=== PATIENT | female | born 1940 | race Caucasian/White ===

== ENCOUNTER 2017-12-26 12:00 | Inpatient (IN) | payer MEDICARE, OTHER ==
[2017-12-27] MEDS ORDERED: Gentamicin 40 MG/ML 2 ML Vial ONE (07:06)
[2017-12-27] MEDS ORDERED: fentaNYL 100 MCG/2 ML SDV ONE (07:54)
[2017-12-27] MEDS ORDERED: Midazolam 1 MG/ML 2 ML SDV ONE (07:54)
[2017-12-27] MEDS ORDERED: Propofol 200 MG/20 ML SDV ONE (07:54)
[2017-12-27] MEDS ORDERED: Lactated Ringers 1,000 ML IV SCH (08:00)
[2017-12-27] MEDS ORDERED: Acetaminophen 500 MG Tab PO ONE (08:00)
[2017-12-27] MEDS ORDERED: Scopolamine 1.5 MG Transdermal Patch TOP SCH (08:00)
[2017-12-27] MEDS ORDERED: ceFAZolin 2 GM in Premix Bag 1 BAG IV ONE (08:00)
[2017-12-27] MEDS ORDERED: Bupivacaine 0.75%/D5W 2 ML Amp ONE (09:13)
[2017-12-27] MEDS ORDERED: Tranexamic Acid 3,000 MG, Sodium Chloride 0.9% 100 ML TOP SCH ×2 (09:15)
[2017-12-27] MEDS ORDERED: Ropivacaine 49.25 ML, Ketorolac 30 MG, EPINEPHrine 0.5 MG, cloNIDine 80 MCG, Sodium Chl... INJECT ONE ×5 (09:15)
[2017-12-27] MEDS ORDERED: Lactated Ringers 1,000 ML ONE (09:51)
[2017-12-27] MEDS: Povidone-Iodine 10% Soln 118.25 ML Bottle ONE ×2 (10:11→10:46)
[2017-12-27] MEDS ORDERED: Morphine 2 MG/ML Syringe IVPUSH PRN (10:29)
[2017-12-27] MEDS ORDERED: Zolpidem 5 MG Tab PO PRN (10:29)
[2017-12-27] MEDS ORDERED: Acetaminophen/oxyCODONE 325-5 MG Tab PO PRN (10:29)
[2017-12-27] MEDS ORDERED: Naloxone 0.4 MG/ML SDV IVPUSH PRN (10:29)
[2017-12-27] MEDS ORDERED: Ketorolac 30 MG/ML SDV IVPUSH PRN (10:29)
[2017-12-27] MEDS ORDERED: Sennosides 8.6 MG Tab PO PRN (10:29)
[2017-12-27] MEDS ORDERED: Ondansetron 4 MG/2 ML SDV IVPUSH PRN (10:29)
[2017-12-27] MEDS ORDERED: Docusate Sodium 100 MG Cap PO PRN (10:29)
[2017-12-27] MEDS ORDERED: diphenhydrAMINE 50 MG/ML SDV IVPUSH PRN (10:29)
[2017-12-27] MEDS ORDERED: Bisacodyl 5 MG Tab PO PRN (10:29)
[2017-12-27] MEDS ORDERED: traMADol 50 MG Tab PO PRN (10:29)
[2017-12-27] MEDS ORDERED: Magnesium Hydroxide 400 MG/5 ML Susp 30 ML Cup PO PRN (10:29)
[2017-12-27] MEDS ORDERED: Aluminum Hydroxide/Magnesium Hydroxide/Simethicone Susp 30 ML Cup PO PRN (10:29)
--- NOTE | 2017-12-27 11:39 | OR ---
DATE OF PROCEDURE: 12/27/2017 PREOPERATIVE DIAGNOSES: Right knee pain and polyethylene wear. POSTOPERATIVE DIAGNOSES: Right knee pain and polyethylene wear. PROCEDURES PERFORMED: 1. Right knee polyethylene exchange. 2. Right knee synovectomy. ANESTHESIA: Spinal plus conscious sedation. FLUIDS: Lactated Ringer solution. ESTIMATED BLOOD LOSS: 25 mL. COMPLICATION: None. SPECIMEN: None. DISCHARGE DISPOSITION: Stable to PACU. INDICATION FOR PROCEDURE: The patient is well known to me. She had a previous total knee arthroplasty performed in [place] around 9 years ago. She has continued to have knee pain and instability. She had anterior translation in flexion, going up and down stairs and hills were very difficult. Preoperative imaging confirmed the above-mentioned diagnosis. Risks and benefits of the procedure were explained to the patient and informed consent was obtained. DESCRIPTION OF PROCEDURE: The patient was seen preoperatively in the preoperative holding area, where the operative site was marked. She was brought to the operative suite by the Anesthesia staff, where spinal sedation plus conscious sedation was administered. Sterile Kelley catheter was placed. A well-padded tourniquet was placed on the right lower extremity, on the thigh. The right lower extremity was then prepped and draped in a sterile manner. Time-out was called identifying the correct patient, the correct procedure, the correct site, and that antibiotics had been begun within the appropriate period of time. A midline incision was made three fingerbreadths proximal to the patella, down to the level of the tibial tubercle, not as long as the previous incision. The medial parapatellar arthrotomy was then made. I did a full synovectomy, at that point, we removed the polyethylene. I then used a lamina hand etcher helper to get redundant posterior capsule as well as piecrust, the posterior capsule due to the stability in extension, but not flexion. I then trialed with a 15, which was a more restrained implant, but we still had anterior translation. So, I tried a 17, 2 mm more than the previous one. This provided excellent stability throughout range of motion and decreased my anterior translation in flexion. We then copiously irrigated with saline and then replaced the trial with the final implant, and then closed the incision at superior and inferior pole of the patella with #5 Ethibond followed by #1 STRATAFIX as well as periarticular injection, and then #2 STRATAFIX, followed by skin lukasz and sterile dressing. The patient was then allowed to awaken from general anesthesia and taken to the PACU in a stable condition. Rangel Garner DO /[id number]
--- NOTE | 2017-12-27 13:10 | CR ---
Knee 1V or 2V Rt CLINICAL HISTORY: Postop FINDINGS: Patient is status post revision of a 3 component total knee arthroplasty. Components appear well seated. Impression: Status post recent revision of total knee arthroplasty
[2017-12-27] MEDS ORDERED: Acetaminophen 325 MG Tab PO PRN (14:53)
[2017-12-27] MEDS: Acetaminophen/oxyCODONE 325-5 MG Tab PO PRN ×2 (15:06→18:31)
[2017-12-27] MEDS: ceFAZolin 2 GM in Sodium Chloride 0.9% 50 ML IV SCH (16:21)
--- NOTE | 2017-12-27 19:39 | PCM.CONSN ---
- General Info Date of Service: 12/27/17 Admission Dx/Problem (Free Text): This is a 77 year old woman, who ihas been asked by Dr. Rey Garner for assistance in postoperative medical management. She underwent a resurfacing of her right total knee arthroplasty earlier today by Dr. Jo-Ann Garner. Since postoperative period she has not had any difficulty. She reports pain control has been good and denies any symptoms of chest pain or shortness of breath. she is otherwise relatively healthy but does have a known history of hypertension, anticoagulation therapy with Coumadin. Will plan to check INR/PT with am labs. Functional Status: Reports: Pain Controlled, Tolerating Diet, Incentive Spirometry - Review of Systems General: Reports: No Symptoms, Other (reports feeling alittle tired. denies chest pain, shortness of breath, pain is controlled.) HEENT: Reports: Glasses, Other (dentures) Pulmonary: Reports: No Symptoms Cardiovascular: Reports: No Symptoms Gastrointestinal: Reports: No Symptoms Genitourinary: Reports: No Symptoms Musculoskeletal: Reports: Leg Pain (surgery today; resurfacing procedure of her right total knee arthroplasty) Skin: Reports: Other (nichol wrap covering surgerical dressing.) Neurological: Reports: No Symptoms Psychiatric: Reports: No Symptoms - Patient Data Vitals - Most Recent: Last Vital Signs Temp 36.2 C 12/27/17 14:30 Pulse 80 12/27/17 14:30 Resp 16 12/27/17 14:30 BP 128/76 12/27/17 14:30 Pulse Ox 99 12/27/17 14:30 Weight - Most Recent: 92.624 kg I&O - Last 24 Hours: Intake & Output 12/27/17 12/27/17 12/27/17 06:59 14:59 22:59 Intake Total 75 1150 Output Total 150 600 Balance -75 550 Lab Results Last 24 Hours: Laboratory Results - last 24 hr 12/27/17 Range/Units 07:30 Blood Type O POSITIVE Gel Antibody Screen Negative Med Orders - Current: Current Medications Acetaminophen (Tylenol) 650 mg PO Q4H PRN PRN Reason: Pain Al Hydroxide/Mg Hydroxide (Mag-Al Plus) 30 ml PO Q4H PRN PRN Reason: Constipation Bisacodyl (Dulcolax) 10 mg PO DAILY PRN PRN Reason: Constipation Diphenhydramine HCl (Benadryl) 25 mg IVPUSH Q4H PRN PRN Reason: Itching Docusate Sodium (Colace) 100 mg PO BID PRN PRN Reason: Constipation Cefazolin Sodium 2 gm/ Sodium (Chloride) 50 mls @ 100 mls/hr IV Q8H [facility] Stop: 12/28/17 09:29 Last Admin: 12/27/17 16:21 Dose: 100 mls/hr Lactated Ringer's (Ringers, Lactated) 1,000 mls @ 100 mls/hr IV ASDIRECTED [facility] Ketorolac Tromethamine (Toradol) 30 mg IVPUSH Q8H PRN PRN Reason: Pain Lovastatin (Mevacor) 20 mg PO QPM [facility] Last Admin: 12/27/17 16:34 Dose: 20 mg Magnesium Hydroxide (Milk Of Magnesia) 30 ml PO BID PRN PRN Reason: Constipation Morphine Sulfate (Morphine) 2 mg IVPUSH Q2H PRN PRN Reason: Pain Naloxone HCl (Narcan) 0.1 mg IVPUSH ONETIME PRN PRN Reason: Oversedation Ondansetron HCl (Zofran) 8 mg IVPUSH Q4H PRN PRN Reason: Nausea/Vomiting Oxybutynin Chloride (Oxybutynin) 5 mg PO DAILY [facility] Oxycodone/Acetaminophen (Percocet 325-5 Mg) 1 - 2 tab PO Q4H PRN PRN Reason: Pain Last Admin: 12/27/17 18:31 Dose: 1 tab Scopolamine (Transderm-Scop) 1.5 mg TOP Q72H [facility] Stop: 12/29/17 08:01 Last Admin: 12/27/17 07:50 Dose: 1.5 mg Senna (Senna) 8.6 mg PO BID PRN PRN Reason: Constipation Sertraline HCl (Zoloft) 50 mg PO DAILY [facility] Sodium Chloride (Saline Flush) 10 ml FLUSH DAILY [facility] Tramadol HCl (Ultram) 100 mg PO Q6H PRN PRN Reason: Pain Warfarin Sodium (Coumadin) 2.5 mg PO SuTuThSa@1300 [facility] Warfarin Sodium (Coumadin) 5 mg PO MoWeFr@1300 [facility] Zolpidem Tartrate (Ambien) 5 mg PO BEDTIME PRN PRN Reason: Sleep Discontinued Medications Acetaminophen (Tylenol Extra Strength) 1,000 mg PO ONETIME ONE Stop: 12/27/17 08:01 Last Admin: 12/27/17 07:49 Dose: 1,000 mg Aspirin (Ecotrin) 325 mg PO DAILY [facility] Bupivacaine HCl/Dextrose (Marcaine 0.75% Spinal) Confirm Administered Dose 2 ml .ROUTE .STK-MED ONE Stop: 12/27/17 09:14 Ropivacaine 49.25 ml/Ketorolac Tromethamine 30 mg/Epinephrine HCl 0.5 mg/ Clonidine HCl 80 mcg/ Sodium Chloride 48.45 ml 0 ml INJECT ONETIME ONE Stop: 12/27/17 09:16 Last Admin: 12/27/17 10:02 Dose: 100 ml Tranexamic Acid 3,000 mg/ (Sodium Chloride 100 ml) 0 mg TOP ASDIRECTED [facility] Stop: 12/27/17 09:16 Last Admin: 12/27/17 10:03 Dose: 100 bag Fentanyl (Sublimaze) Confirm Administered Dose 100 mcg .ROUTE .STK-MED ONE Stop: 12/27/17 07:55 Gentamicin Sulfate (Gentamicin) Confirm Administered Dose 240 mg .ROUTE .STK- MED ONE Stop: 12/27/17 07:07 Last Admin: 12/27/17 10:10 Dose: 240 mg Cefazolin Sodium/Dextrose 2 gm (/ Premix) 50 mls @ 100 mls/hr IV ONETIME ONE Stop: 12/27/17 08:29 Last Admin: 12/27/17 09:01 Dose: 100 mls/hr Lactated Ringer's (Ringers, Lactated) 1,000 mls @ 100 mls/hr IV ASDIRECTED [facility] Last Admin: 12/27/17 08:47 Dose: 100 mls/hr Lactated Ringer's (Ringers, Lactated) Confirm Administered Dose 1,000 mls @ as directed .ROUTE .STK-MED ONE Stop: 12/27/17 09:52 Midazolam HCl (Versed 1 Mg/Ml) Confirm Administered Dose 2 mg .ROUTE .STK-MED ONE Stop: 12/27/17 07:55 Oxycodone/Acetaminophen (Percocet 325-5 Mg) 2 tab PO Q4H PRN PRN Reason: Pain Povidone Iodine (Betadine 10% Soln) Confirm Administered Dose 1 ml .ROUTE .STK- MED ONE Stop: 12/27/17 07:08 Last Admin: 12/27/17 10:46 Dose: 5 ml Propofol (Diprivan 20 Ml) Confirm Administered Dose 200 mg .ROUTE .STK-MED ONE Stop: 12/27/17 07:55 - Exam General: Alert, Oriented, Cooperative, No Acute Distress HEENT: Pupils Equal, EOMI, Mucous Membr. Moist/[place] Neck: Supple, Trachea Midline Lungs: Clear to Auscultation, Normal Respiratory Effort Cardiovascular: Regular Rate, Regular Rhythm, No Murmurs GI/Abdominal Exam: Normal Bowel Sounds, Soft, Non-Tender (Female) Exam: Deferred Back Exam: Normal Inspection, Full Range of Motion Extremities: Normal Inspection, Normal Range of Motion (left leg), No Pedal Edema, Normal Capillary Refill, Other (right leg; knee wrapped in nichol wrap over surgical dressing. dry, clean, intact) Skin: Warm, Dry Wound/Incisions: Dressing Dry and Intact, No Drainage Neurological: No New Focal Deficit Psy/Mental Status: Alert, Normal Affect, Normal Mood Consult PN Assessment/Plan Procedures: Procedures BLOOD TYPING SEROLOGIC ABO (12/11/17) BLOOD TYPING SEROLOGIC RH(D) (12/11/17) CARDIOVASCULAR STRESS TEST (11/18/16) COLONOSCOPY AND BIOPSY (11/18/15) COMP SCREEN MAMMOGRAM ADD-ON (06/22/15) COMPLETE CBC AUTOMATED (12/11/17) COMPREHEN METABOLIC PANEL (12/11/17) COMPUTER DX MAMMOGRAM ADD-ON (06/24/15) CT LOWER EXTREMITY W/O DYE (10/23/17) CULTURE OTHR SPECIMN AEROBIC (12/11/17) ELECTROCARDIOGRAM TRACING (12/11/17) HOT OR COLD PACKS THERAPY (01/18/17) HT MUSCLE IMAGE SPECT MULT (11/18/16) MANUAL THERAPY 1/> REGIONS (01/18/17) MRI LUMBAR SPINE W/O DYE (06/29/17) MRI NECK SPINE W/O DYE (04/03/15) OFFICE/OUTPATIENT VISIT EST (10/26/17) PROTHROMBIN TIME (09/30/16) PT EVAL LOW COMPLEX 20 MIN (12/15/16) PT EVALUATION (02/03/15) RBC ANTIBODY SCREEN (12/11/17) ROUTINE VENIPUNCTURE (12/11/17) SCR MAMMO BI INCL CAD (06/28/17) THERAPEUTIC EXERCISES (01/16/17) TISSUE EXAM BY PATHOLOGIST (11/18/15) X-RAY EXAM L-2 SPINE 4/>VWS (07/10/17) X-RAY EXAM OF KNEE 1 OR 2 (10/23/17) (1) S/P right knee surgery SNOMED Code(s): 276816480 Code(s): Z98.890 - OTHER SPECIFIED POSTPROCEDURAL STATES Priority: High Current Visit: Yes (2) Cardiovascular disease Priority: Medium Current Visit: Yes (3) Hx of deep venous thrombosis SNOMED Code(s): 475600761 Code(s): Z86.718 - PERSONAL HISTORY OF OTHER VENOUS THROMBOSIS AND EMBOLISM Priority: Medium Current Visit: Yes Problem List Initiated/Reviewed/Updated: Yes Plan: ASSESSMENT AND RECOMMENDATIONS STATUS POST RESURFACING OF PROSTHETIC JOINT-uncomplicated post operative course -Postoperative care per Hx of DVT, Cardiovascular disease -monitor blood pressue regularly during hospital stay -continue outpatient medications -add INR/PT to am labs. Requesting Provider:SULEIMAN Date Consult Requested:12/27/2017 Reason for Consult: Postoperative medical management Patient History Reviewed: yes
[2017-12-27] MEDS: Lactated Ringers 1,000 ML IV SCH (20:42)
[2017-12-28] MEDS: ceFAZolin 2 GM in Sodium Chloride 0.9% 50 ML IV SCH ×2 (01:04→08:51)
[2017-12-28] MEDS: Acetaminophen/oxyCODONE 325-5 MG Tab PO PRN ×4 (03:17→20:01)
[2017-12-28] MEDS: Lactated Ringers 1,000 ML IV SCH (07:44)
--- NOTE | 2017-12-28 08:43 | PCM.DCSUM1 ---
Discharge Summary - Hospital Course Diagnosis: Stroke: No - Discharge Data Discharge Date: 12/30/17 Discharge Disposition: Home, Self-Care 01 Condition: Good - Patient Summary/Data Operative Procedure(s) Performed: revision left tka Consults: Consultations 12/27/17 10:29 OT Evaluation and Treatment [CONS] Routine Please Evaluate and Treat. OT Reason for Consult: Strengthening This query below is only for informational purposes and is not editable. PT Evaluation and Treatment [CONS] Routine Please Evaluate and Treat. PT Reason for Consult: Strengthening This query below is only for informational purposes and is not editable. Respiratory Care Assess and Treatment [CONS] Routine Comment: Physician Instructions: Post-op Pneumonia Prevention 12/27/17 10:37 Consult to Physician [CONS] Routine Consulting Provider: Naldo Gale Call Completed to Consulting Physician: Yes - Patient Instructions Diet: Usual Diet as Tolerated Activity: As Tolerated, Cough & Deep Breathe, Full Weight Bearing, No Strenuous Activities Driving: Do Not Drive Showering/Bathing: May Shower Wound/Incision Care: Keep Operative Site/Wound Site Clean and Dry Wound/Incision, Other: change Aquacell after 5 days then daily dressing changes - Discharge Plan *PRESCRIPTION DRUG MONITORING PROGRAM REVIEWED*: No *COPY OF PRESCRIPTION DRUG MONITORING REPORT IN PATIENT ZOYA: No Prescriptions/Med Rec: Acetaminophen/oxyCODONE [Percocet 325-5 MG] 1 tab PO Q6HR #90 tablet Home Medications: Home Meds Biotin 1 mg PO DAILY 11/17/15 [History] Cholecalciferol (Vitamin D3) [Vitamin D3] 1,000 unit PO DAILY 11/17/15 [History] Latanoprost [Xalatan 0.005% Ophth Soln] 1 drop EYEBOTH BEDTIME 11/17/15 [History ] Lovastatin [Mevacor] 20 mg PO QPM 11/17/15 [History] Multivitamin [Multi-Vitamin Daily] 1 each PO DAILY 11/17/15 [History] Sertraline [Zoloft] 50 mg PO DAILY 11/17/15 [History] Warfarin [Coumadin] 2.5 mg PO .TU-TH-SA-BANDA 11/18/15 [History] Warfarin [Coumadin] 5 mg PO .MO-WE-FR 11/18/15 [History] Oxybutynin Chloride 5 mg PO DAILY 11/11/16 [History] Acetaminophen/oxyCODONE [Percocet 325-5 MG] 1 tab PO Q6HR #90 tablet 12/28/17 [ Rx] - General Info Functional Status: Reports: Pain Controlled, Tolerating Diet, Ambulating, Urinating, Incentive Spirometry - Review of Systems General: Reports: No Symptoms HEENT: Reports: No Symptoms Pulmonary: Reports: No Symptoms Cardiovascular: Reports: No Symptoms Gastrointestinal: Reports: No Symptoms Genitourinary: Reports: No Symptoms Musculoskeletal: Reports: Joint Pain Skin: Reports: No Symptoms Neurological: Reports: No Symptoms Psychiatric: Reports: No Symptoms - Patient Data Vitals - Most Recent: Last Vital Signs Temp 98.5 F 12/28/17 07:31 Pulse 78 12/28/17 07:31 Resp 18 12/28/17 07:31 BP 124/56 L 12/28/17 07:31 Pulse Ox 92 L 12/28/17 07:34 Weight - Most Recent: 204 lb 3.2 oz I&O - Last 24 hours: Intake & Output 12/27/17 12/28/17 12/28/17 22:59 06:59 14:59 Intake Total 1150 1490 240 Output Total 600 1000 Balance 550 490 240 Lab Results - Last 24 hrs: Laboratory Results - last 24 hr 12/27/17 12/28/17 12/28/17 Range/Units 07:30 05:00 05:00 WBC 7.3 (4.5-11.0) K/uL RBC 4.12 (3.30-5.50) M/uL Hgb 12.8 D (12.0-15.0) g/dL Hct 38.5 (36.0-48.0) % MCV 93 (80-98) fL MCH 31 (27-31) pg MCHC 33 (32-36) % Plt Count 193 (150-400) K/uL Neut % (Auto) 74 H (36-66) % Lymph % (Auto) 14 L (24-44) % [place] % (Auto) 11 H (2-6) % Eos % (Auto) 1 L (2-4) % Baso % (Auto) 0 (0-1) % PT (9.5-12.0) sec INR (0.80-1.20) Sodium 138 L (140-148) mmol/L Potassium 4.0 (3.6-5.2) mmol/L Chloride 104 (100-108) mmol/L Carbon Dioxide 30 (21-32) mmol/L Anion Gap 8.0 (5.0-14.0) mmol/L BUN 11 (7-18) mg/dL Creatinine 0.8 (0.6-1.0) mg/dL Est Cr Clr Drug Dosing 47.17 mL/min Estimated GFR (MDRD) > 60 (>60) Glucose 105 (74-106) mg/dL Calcium 8.3 L (8.5-10.1) mg/dL Total Bilirubin 0.5 (0.2-1.0) mg/dL ALT 30 (12-78) U/L Alkaline Phosphatase 62 (46-116) U/L Total Protein 5.4 L (6.4-8.2) g/dL Albumin 2.7 L (3.4-5.0) g/dL Globulin 2.7 (2.3-3.5) g/dL Albumin/Globulin Ratio 1.0 L (1.2-2.2) Blood Type O POSITIVE Gel Antibody Screen Negative 12/28/17 Range/Units 05:00 WBC (4.5-11.0) K/uL RBC (3.30-5.50) M/uL Hgb (12.0-15.0) g/dL Hct (36.0-48.0) % MCV (80-98) fL MCH (27-31) pg MCHC (32-36) % Plt Count (150-400) K/uL Neut % (Auto) (36-66) % Lymph % (Auto) (24-44) % [place] % (Auto) (2-6) % Eos % (Auto) (2-4) % Baso % (Auto) (0-1) % PT 10.7 (9.5-12.0) sec INR 0.97 D (0.80-1.20) Sodium (140-148) mmol/L Potassium (3.6-5.2) mmol/L Chloride (100-108) mmol/L Carbon Dioxide (21-32) mmol/L Anion Gap (5.0-14.0) mmol/L BUN (7-18) mg/dL Creatinine (0.6-1.0) mg/dL Est Cr Clr Drug Dosing mL/min Estimated GFR (MDRD) (>60) Glucose (74-106) mg/dL Calcium (8.5-10.1) mg/dL Total Bilirubin (0.2-1.0) mg/dL ALT (12-78) U/L Alkaline Phosphatase (46-116) U/L Total Protein (6.4-8.2) g/dL Albumin (3.4-5.0) g/dL Globulin (2.3-3.5) g/dL Albumin/Globulin Ratio (1.2-2.2) Blood Type Gel Antibody Screen Med Orders - Current: Current Medications Acetaminophen (Tylenol) 650 mg PO Q4H PRN PRN Reason: Pain Al Hydroxide/Mg Hydroxide (Mag-Al Plus) 30 ml PO Q4H PRN PRN Reason: Constipation Bisacodyl (Dulcolax) 10 mg PO DAILY PRN PRN Reason: Constipation Diphenhydramine HCl (Benadryl) 25 mg IVPUSH Q4H PRN PRN Reason: Itching Docusate Sodium (Colace) 100 mg PO BID PRN PRN Reason: Constipation Last Admin: 12/28/17 07:25 Dose: 100 mg Cefazolin Sodium 2 gm/ Sodium (Chloride) 50 mls @ 100 mls/hr IV Q8H [facility] Stop: 12/28/17 09:29 Last Admin: 12/28/17 01:04 Dose: 100 mls/hr Lactated Ringer's (Ringers, Lactated) 1,000 mls @ 100 mls/hr IV ASDIRECTED [facility] Last Admin: 12/28/17 07:44 Dose: 100 mls/hr Ketorolac Tromethamine (Toradol) 30 mg IVPUSH Q8H PRN PRN Reason: Pain Lovastatin (Mevacor) 20 mg PO QPM [facility] Last Admin: 12/27/17 16:34 Dose: 20 mg Magnesium Hydroxide (Milk Of Magnesia) 30 ml PO BID PRN PRN Reason: Constipation Morphine Sulfate (Morphine) 2 mg IVPUSH Q2H PRN PRN Reason: Pain Naloxone HCl (Narcan) 0.1 mg IVPUSH ONETIME PRN PRN Reason: Oversedation Ondansetron HCl (Zofran) 8 mg IVPUSH Q4H PRN PRN Reason: Nausea/Vomiting Oxybutynin Chloride (Oxybutynin) 5 mg PO DAILY [facility] Oxycodone/Acetaminophen (Percocet 325-5 Mg) 1 - 2 tab PO Q4H PRN PRN Reason: Pain Last Admin: 12/28/17 07:25 Dose: 1 tab Scopolamine (Transderm-Scop) 1.5 mg TOP Q72H [facility] Stop: 12/29/17 08:01 Last Admin: 12/27/17 07:50 Dose: 1.5 mg Senna (Senna) 8.6 mg PO BID PRN PRN Reason: Constipation Sertraline HCl (Zoloft) 50 mg PO DAILY [facility] Sodium Chloride (Saline Flush) 10 ml FLUSH DAILY [facility] Tramadol HCl (Ultram) 100 mg PO Q6H PRN PRN Reason: Pain Last Admin: 12/27/17 20:41 Dose: 100 mg Warfarin Sodium (Coumadin) 2.5 mg PO SuTuThSa@1300 [facility] Warfarin Sodium (Coumadin) 5 mg PO MoWeFr@1300 [facility] Zolpidem Tartrate (Ambien) 5 mg PO BEDTIME PRN PRN Reason: Sleep Discontinued Medications Acetaminophen (Tylenol Extra Strength) 1,000 mg PO ONETIME ONE Stop: 12/27/17 08:01 Last Admin: 12/27/17 07:49 Dose: 1,000 mg Aspirin (Ecotrin) 325 mg PO DAILY [facility] Bupivacaine HCl/Dextrose (Marcaine 0.75% Spinal) Confirm Administered Dose 2 ml .ROUTE .STK-MED ONE Stop: 12/27/17 09:14 Ropivacaine 49.25 ml/Ketorolac Tromethamine 30 mg/Epinephrine HCl 0.5 mg/ Clonidine HCl 80 mcg/ Sodium Chloride 48.45 ml 0 ml INJECT ONETIME ONE Stop: 12/27/17 09:16 Last Admin: 12/27/17 10:02 Dose: 100 ml Tranexamic Acid 3,000 mg/ (Sodium Chloride 100 ml) 0 mg TOP ASDIRECTED [facility] Stop: 12/27/17 09:16 Last Admin: 12/27/17 10:03 Dose: 100 bag Fentanyl (Sublimaze) Confirm Administered Dose 100 mcg .ROUTE .STK-MED ONE Stop: 12/27/17 07:55 Gentamicin Sulfate (Gentamicin) Confirm Administered Dose 240 mg .ROUTE .STK- MED ONE Stop: 12/27/17 07:07 Last Admin: 12/27/17 10:10 Dose: 240 mg Cefazolin Sodium/Dextrose 2 gm (/ Premix) 50 mls @ 100 mls/hr IV ONETIME ONE Stop: 12/27/17 08:29 Last Admin: 12/27/17 09:01 Dose: 100 mls/hr Lactated Ringer's (Ringers, Lactated) 1,000 mls @ 100 mls/hr IV ASDIRECTED [facility] Last Admin: 12/27/17 08:47 Dose: 100 mls/hr Lactated Ringer's (Ringers, Lactated) Confirm Administered Dose 1,000 mls @ as directed .ROUTE .STK-MED ONE Stop: 12/27/17 09:52 Midazolam HCl (Versed 1 Mg/Ml) Confirm Administered Dose 2 mg .ROUTE .STK-MED ONE Stop: 12/27/17 07:55 Oxycodone/Acetaminophen (Percocet 325-5 Mg) 2 tab PO Q4H PRN PRN Reason: Pain Povidone Iodine (Betadine 10% Soln) Confirm Administered Dose 1 ml .ROUTE .STK- MED ONE Stop: 12/27/17 07:08 Last Admin: 12/27/17 10:46 Dose: 5 ml Propofol (Diprivan 20 Ml) Confirm Administered Dose 200 mg .ROUTE .STK-MED ONE Stop: 12/27/17 07:55 - Exam General: Reports: Alert, Oriented HEENT: Reports: Pupils Equal, Mucous Membr. Moist/[place] Neck: Reports: Supple, Trachea Midline Lungs: Reports: Clear to Auscultation, Normal Respiratory Effort Cardiovascular: Reports: Regular Rate, Regular Rhythm Skin: Reports: Warm, Dry, Intact Wound/Incisions: Reports: Healing Well, Dressing Dry and Intact, No Drainage Neurological: Reports: No New Focal Deficit Psy/Mental Status: Reports: Alert, Normal Affect, Normal Mood Discharge Operative/Procedures - Procedures Performed Operations: left revision tka
[2017-12-28] MEDS: Sodium Chloride 0.9% 10 ML Syringe FLUSH SCH (08:51)
[2017-12-28] MEDS: Oxybutynin 5 MG Tab PO SCH (08:51)
[2017-12-28] MEDS: Sertraline 50 MG Tab PO SCH (08:51)
[2017-12-28] MEDS ORDERED: Aspirin 325 MG Tab.EC PO SCH (09:00)
--- NOTE | 2017-12-28 11:19 | PCM.CONSN ---
- General Info Date of Service: 12/28/17 Subjective Update: Ms. Butler has remained stable since surgery yesterday, vital signs have been good and she has remained afebrile. Increased pain in the knee with movement as would be expected. - Review of Systems General: Denies: Fever, Weakness, Chills Pulmonary: Reports: No Symptoms Cardiovascular: Reports: No Symptoms Gastrointestinal: Reports: No Symptoms - Patient Data Vitals - Most Recent: Last Vital Signs Temp 99.1 F 12/28/17 11:03 Pulse 74 12/28/17 11:03 Resp 16 12/28/17 11:03 BP 145/71 H 12/28/17 11:03 Pulse Ox 96 12/28/17 11:08 Weight - Most Recent: 204 lb 3.215 oz I&O - Last 24 Hours: Intake & Output 12/27/17 12/28/17 12/28/17 22:59 06:59 14:59 Intake Total 1150 1490 290 Output Total 600 1000 200 Balance 550 490 90 Lab Results Last 24 Hours: Laboratory Results - last 24 hr 12/28/17 12/28/17 12/28/17 Range/Units 05:00 05:00 05:00 WBC 7.3 (4.5-11.0) K/uL RBC 4.12 (3.30-5.50) M/uL Hgb 12.8 D (12.0-15.0) g/dL Hct 38.5 (36.0-48.0) % MCV 93 (80-98) fL MCH 31 (27-31) pg MCHC 33 (32-36) % Plt Count 193 (150-400) K/uL Neut % (Auto) 74 H (36-66) % Lymph % (Auto) 14 L (24-44) % [place] % (Auto) 11 H (2-6) % Eos % (Auto) 1 L (2-4) % Baso % (Auto) 0 (0-1) % PT 10.7 (9.5-12.0) sec INR 0.97 D (0.80-1.20) Sodium 138 L (140-148) mmol/L Potassium 4.0 (3.6-5.2) mmol/L Chloride 104 (100-108) mmol/L Carbon Dioxide 30 (21-32) mmol/L Anion Gap 8.0 (5.0-14.0) mmol/L BUN 11 (7-18) mg/dL Creatinine 0.8 (0.6-1.0) mg/dL Est Cr Clr Drug Dosing 47.17 mL/min Estimated GFR (MDRD) > 60 (>60) Glucose 105 (74-106) mg/dL Calcium 8.3 L (8.5-10.1) mg/dL Total Bilirubin 0.5 (0.2-1.0) mg/dL AST 45 H (15-37) U/L ALT 30 (12-78) U/L Alkaline Phosphatase 62 (46-116) U/L Total Protein 5.4 L (6.4-8.2) g/dL Albumin 2.7 L (3.4-5.0) g/dL Globulin 2.7 (2.3-3.5) g/dL Albumin/Globulin Ratio 1.0 L (1.2-2.2) Med Orders - Current: Current Medications Acetaminophen (Tylenol) 650 mg PO Q4H PRN PRN Reason: Pain Al Hydroxide/Mg Hydroxide (Mag-Al Plus) 30 ml PO Q4H PRN PRN Reason: Constipation Bisacodyl (Dulcolax) 10 mg PO DAILY PRN PRN Reason: Constipation Diphenhydramine HCl (Benadryl) 25 mg IVPUSH Q4H PRN PRN Reason: Itching Docusate Sodium (Colace) 100 mg PO BID PRN PRN Reason: Constipation Last Admin: 12/28/17 07:25 Dose: 100 mg Ketorolac Tromethamine (Toradol) 30 mg IVPUSH Q8H PRN PRN Reason: Pain Stop: 01/01/18 10:30 Lovastatin (Mevacor) 20 mg PO QPM JENNIFER Last Admin: 12/27/17 16:34 Dose: 20 mg Magnesium Hydroxide (Milk Of Magnesia) 30 ml PO BID PRN PRN Reason: Constipation Morphine Sulfate (Morphine) 2 mg IVPUSH Q2H PRN PRN Reason: Pain Naloxone HCl (Narcan) 0.1 mg IVPUSH ONETIME PRN PRN Reason: Oversedation Ondansetron HCl (Zofran) 8 mg IVPUSH Q4H PRN PRN Reason: Nausea/Vomiting Oxybutynin Chloride (Oxybutynin) 5 mg PO DAILY [facility] Last Admin: 12/28/17 08:51 Dose: 5 mg Oxycodone/Acetaminophen (Percocet 325-5 Mg) 1 - 2 tab PO Q4H PRN PRN Reason: Pain Last Admin: 12/28/17 07:25 Dose: 1 tab Scopolamine (Transderm-Scop) 1.5 mg TOP Q72H [facility] Stop: 12/29/17 08:01 Last Admin: 12/27/17 07:50 Dose: 1.5 mg Senna (Senna) 8.6 mg PO BID PRN PRN Reason: Constipation Sertraline HCl (Zoloft) 50 mg PO DAILY [facility] Last Admin: 12/28/17 08:51 Dose: 50 mg Sodium Chloride (Saline Flush) 10 ml FLUSH DAILY [facility] Last Admin: 12/28/17 08:51 Dose: Not Given Tramadol HCl (Ultram) 100 mg PO Q6H PRN PRN Reason: Pain Last Admin: 12/27/17 20:41 Dose: 100 mg Warfarin Sodium (Coumadin) 2.5 mg PO SuTuThSa@1300 [facility] Warfarin Sodium (Coumadin) 5 mg PO MoWeFr@1300 [facility] Zolpidem Tartrate (Ambien) 5 mg PO BEDTIME PRN PRN Reason: Sleep Discontinued Medications Acetaminophen (Tylenol Extra Strength) 1,000 mg PO ONETIME ONE Stop: 12/27/17 08:01 Last Admin: 12/27/17 07:49 Dose: 1,000 mg Aspirin (Ecotrin) 325 mg PO DAILY [facility] Bupivacaine HCl/Dextrose (Marcaine 0.75% Spinal) Confirm Administered Dose 2 ml .ROUTE .STK-MED ONE Stop: 12/27/17 09:14 Ropivacaine 49.25 ml/Ketorolac Tromethamine 30 mg/Epinephrine HCl 0.5 mg/ Clonidine HCl 80 mcg/ Sodium Chloride 48.45 ml 0 ml INJECT ONETIME ONE Stop: 12/27/17 09:16 Last Admin: 12/27/17 10:02 Dose: 100 ml Tranexamic Acid 3,000 mg/ (Sodium Chloride 100 ml) 0 mg TOP ASDIRECTED [facility] Stop: 12/27/17 09:16 Last Admin: 12/27/17 10:03 Dose: 100 bag Fentanyl (Sublimaze) Confirm Administered Dose 100 mcg .ROUTE .STK-MED ONE Stop: 12/27/17 07:55 Gentamicin Sulfate (Gentamicin) Confirm Administered Dose [address]- [facility] ONE Stop: 12/27/17 07:07 Last Admin: 12/27/17 10:10 Dose: 240 mg Cefazolin Sodium/Dextrose 2 gm (/ Premix) 50 mls @ 100 mls/hr IV ONETIME ONE Stop: 12/27/17 08:29 Last Admin: 12/27/17 09:01 Dose: 100 mls/hr Lactated Ringer's (Ringers, Lactated) 1,000 mls @ 100 mls/hr IV ASDIRECTED [facility] Last Admin: 12/27/17 08:47 Dose: 100 mls/hr Lactated Ringer's (Ringers, Lactated) Confirm Administered Dose 1,000 mls @ as directed .ROUTE .[facility]-MED ONE Stop: 12/27/17 09:52 Cefazolin Sodium 2 gm/ Sodium (Chloride) 50 mls @ 100 mls/hr IV Q8H [facility] Stop: 12/28/17 09:29 Last Admin: 12/28/17 08:51 Dose: 100 mls/hr Lactated Ringer's (Ringers, Lactated) 1,000 mls @ 100 mls/hr IV ASDIRECTED [facility] Last Admin: 12/28/17 07:44 Dose: 100 mls/hr Midazolam HCl (Versed 1 Mg/Ml) Confirm Administered Dose 2 mg .ROUTE .ST-MED ONE Stop: 12/27/17 07:55 Oxycodone/Acetaminophen (Percocet 325-5 Mg) 2 tab PO Q4H PRN PRN Reason: Pain Povidone Iodine (Betadine 10% Soln) Confirm Administered Dose 1 ml .[address] .[facility] ONE Stop: 12/27/17 07:08 Last Admin: 12/27/17 10:46 Dose: 5 ml Propofol (Diprivan 20 Ml) Confirm Administered Dose [address] ONE Stop: 12/27/17 07:55 - Exam General: Alert, Oriented, Cooperative, Mild Distress Lungs: Clear to Auscultation, Normal Respiratory Effort Cardiovascular: Regular Rate, Regular Rhythm, No Murmurs GI/Abdominal Exam: Soft, Non-Tender, No Organomegaly, No Distention Consult PN Assessment/Plan Procedures: Procedures BLOOD TYPING SEROLOGIC ABO (12/11/17) BLOOD TYPING SEROLOGIC RH(D) (12/11/17) CARDIOVASCULAR STRESS TEST (11/18/16) COLONOSCOPY AND BIOPSY (11/18/15) COMP SCREEN MAMMOGRAM ADD-ON (06/22/15) COMPLETE CBC AUTOMATED (12/11/17) COMPREHEN METABOLIC PANEL (12/11/17) COMPUTER DX MAMMOGRAM ADD-ON (06/24/15) CT LOWER EXTREMITY W/O DYE (10/23/17) CULTURE OTHR SPECIMN AEROBIC (12/11/17) ELECTROCARDIOGRAM TRACING (12/11/17) HOT OR COLD PACKS THERAPY (01/18/17) HT MUSCLE IMAGE SPECT MULT (11/18/16) MANUAL THERAPY 1/> REGIONS (01/18/17) MRI LUMBAR SPINE W/O DYE (06/29/17) MRI NECK SPINE W/O DYE (04/03/15) OFFICE/OUTPATIENT VISIT EST (10/26/17) PROTHROMBIN TIME (09/30/16) PT EVAL LOW COMPLEX 20 MIN (12/15/16) PT EVALUATION (02/03/15) RBC ANTIBODY SCREEN (12/11/17) ROUTINE VENIPUNCTURE (12/11/17) SCR MAMMO BI INCL CAD (06/28/17) THERAPEUTIC EXERCISES (01/16/17) TISSUE EXAM BY PATHOLOGIST (11/18/15) X-RAY EXAM L-2 SPINE 4/>VWS (07/10/17) X-RAY EXAM OF KNEE 1 OR 2 (10/23/17) Problem List Initiated/Reviewed/Updated: Yes My Orders Last 24 Hours: My Active Orders 12/28/17 11:17 Convert IV to Saline Lock [OM.PC] Routine 12/29/17 05:00 INR,PT,PROTHROMBIN TIME [COAG] Timed Plan: ASSESSMENT AND RECOMMENDATIONS STATUS POST RESURFACING OF PROSTHETIC JOINT-uncomplicated post operative course -Postoperative care per Hx of DVT, Cardiovascular disease -monitor blood pressue regularly during hospital stay -continue outpatient medications -Resume warfarin today -INR in a.m.
[2017-12-28] MEDS ORDERED: Warfarin 2.5 MG Tab PO SCH (13:00)
--- NOTE | 2017-12-28 13:40 | PCM.SN ---
- Free Text/Narrative Note: I the pleasure speaking with the patient and her family today. The patient lives alone and will not have any home support. She will I have any home supervision or assistance available. I do not believe she'll be safe at home for rehabilitation. Please note that in my discharge summary was marked as to home with home health care. This is not correct. She'll be discharged to a residential facility. They will also be monitoring her PT and INR.
[2017-12-29] MEDS: Acetaminophen/oxyCODONE 325-5 MG Tab PO PRN ×3 (04:03→14:40)
[2017-12-29] MEDS ORDERED: Bisacodyl 10 MG Supp RECTAL PRN (09:56)
[2017-12-29] MEDS: Oxybutynin 5 MG Tab PO SCH (10:00)
[2017-12-29] MEDS: Sertraline 50 MG Tab PO SCH (10:00)
--- NOTE | 2017-12-29 10:29 | PCM.PN ---
- General Info Date of Service: 12/29/17 Subjective Update: Ms. 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 Slowly progressing with ambulation and awaiting usp placement. Functional Status: Reports: Pain Controlled, Tolerating Diet, Ambulating, Urinating - Review of Systems General: Reports: Weakness. Denies: Fever, Chills Pulmonary: Reports: No Symptoms Cardiovascular: Reports: No Symptoms Gastrointestinal: Reports: No Symptoms Musculoskeletal: Reports: Joint Pain (Right knee) - Patient Data Vitals - Most Recent: Last Vital Signs Temp 99.0 F 12/29/17 04:00 Pulse 81 12/29/17 04:00 Resp 16 12/29/17 04:00 BP 135/55 L 12/29/17 04:00 Pulse Ox 97 12/29/17 04:00 Weight - Most Recent: 204 lb 3.215 oz I&O - Last 24 Hours: Intake & Output 12/28/17 12/29/17 12/29/17 22:59 06:59 14:59 Intake Total 240 Output Total 650 200 Balance -410 -200 Lab Results Last 24 Hours: Laboratory Results - last 24 hr 12/29/17 12/29/17 12/29/17 Range/Units 05:45 05:45 05:45 WBC 7.0 (4.5-11.0) K/uL RBC 4.10 (3.30-5.50) M/uL Hgb 12.7 (12.0-15.0) g/dL Hct 39.0 (36.0-48.0) % MCV 95 (80-98) fL MCH 31 (27-31) pg MCHC 33 (32-36) % Plt Count 191 (150-400) K/uL Neut % (Auto) 70 H (36-66) % Lymph % (Auto) 14 L (24-44) % [place] % (Auto) 13 H (2-6) % Eos % (Auto) 3 (2-4) % Baso % (Auto) 0 (0-1) % PT 10.8 (9.5-12.0) sec INR 0.98 (0.80-1.20) Sodium 139 L (140-148) mmol/L Potassium 4.2 (3.6-5.2) mmol/L Chloride 102 (100-108) mmol/L Carbon Dioxide 29 (21-32) mmol/L Anion Gap 12.2 (5.0-14.0) mmol/L BUN 12 (7-18) mg/dL Creatinine 0.7 (0.6-1.0) mg/dL Est Cr Clr Drug Dosing 53.89 mL/min Estimated GFR (MDRD) > 60 (>60) Glucose 110 H (74-106) mg/dL Calcium 8.4 L (8.5-10.1) mg/dL Total Bilirubin 0.6 (0.2-1.0) mg/dL AST 45 H (15-37) U/L ALT 31 (12-78) U/L Alkaline Phosphatase 67 (46-116) U/L Total Protein 5.7 L (6.4-8.2) g/dL Albumin 2.6 L (3.4-5.0) g/dL Globulin 3.1 (2.3-3.5) g/dL Albumin/Globulin Ratio 0.8 L (1.2-2.2) Med Orders - Current: Current Medications Acetaminophen (Tylenol) 650 mg PO Q4H PRN PRN Reason: Pain Al Hydroxide/Mg Hydroxide (Mag-Al Plus) 30 ml PO Q4H PRN PRN Reason: Constipation Bisacodyl (Dulcolax) 10 mg PO DAILY PRN PRN Reason: Constipation Bisacodyl (Dulcolax) 10 mg RECTAL DAILY PRN PRN Reason: Constipation Diphenhydramine HCl (Benadryl) 25 mg IVPUSH Q4H PRN PRN Reason: Itching Docusate Sodium (Colace) 100 mg PO BID PRN PRN Reason: Constipation Last Admin: 12/28/17 07:25 Dose: 100 mg Ketorolac Tromethamine (Toradol) 30 mg IVPUSH Q8H PRN PRN Reason: Pain Stop: 01/01/18 10:30 Last Admin: 12/28/17 14:33 Dose: 30 mg Lovastatin (Mevacor) 20 mg PO QPM JENNIFER Last Admin: 12/28/17 17:12 Dose: 20 mg Magnesium Hydroxide (Milk Of Magnesia) 30 ml PO BID PRN PRN Reason: Constipation Morphine Sulfate (Morphine) 2 mg IVPUSH Q2H PRN PRN Reason: Pain Naloxone HCl (Narcan) 0.1 mg IVPUSH ONETIME PRN PRN Reason: Oversedation Ondansetron HCl (Zofran) 8 mg IVPUSH Q4H PRN PRN Reason: Nausea/Vomiting Oxybutynin Chloride (Oxybutynin) 5 mg PO DAILY [facility] Last Admin: 12/28/17 08:51 Dose: 5 mg Oxycodone/Acetaminophen (Percocet 325-5 Mg) 1 - 2 tab PO Q4H PRN PRN Reason: Pain Last Admin: 12/29/17 04:03 Dose: 2 tab Senna (Senna) 8.6 mg PO BID PRN PRN Reason: Constipation Sertraline HCl (Zoloft) 50 mg PO DAILY [facility] Last Admin: 12/28/17 08:51 Dose: 50 mg Sodium Chloride (Saline Flush) 10 ml FLUSH DAILY [facility] Last Admin: 12/28/17 08:51 Dose: Not Given Tramadol HCl (Ultram) 100 mg PO Q6H PRN PRN Reason: Pain Last Admin: 12/27/17 20:41 Dose: 100 mg Warfarin Sodium (Coumadin) 2.5 mg PO SuTuThSa@1300 [facility] Last Admin: 12/28/17 14:32 Dose: 2.5 mg Warfarin Sodium (Coumadin) 5 mg PO MoWeFr@1300 [facility] Zolpidem Tartrate (Ambien) 5 mg PO BEDTIME PRN PRN Reason: Sleep Discontinued Medications Acetaminophen (Tylenol Extra Strength) 1,000 mg PO ONETIME ONE Stop: 12/27/17 08:01 Last Admin: 12/27/17 07:49 Dose: 1,000 mg Aspirin (Ecotrin) 325 mg PO DAILY [facility] Bupivacaine HCl/Dextrose (Marcaine 0.75% Spinal) Confirm Administered Dose 2 ml .ROUTE .STK-MED ONE Stop: 12/27/17 09:14 Ropivacaine 49.25 ml/Ketorolac Tromethamine 30 mg/Epinephrine HCl 0.5 mg/ Clonidine HCl 80 mcg/ Sodium Chloride 48.45 ml 0 ml INJECT ONETIME ONE Stop: 12/27/17 09:16 Last Admin: 12/27/17 10:02 Dose: 100 ml Tranexamic Acid 3,000 mg/ (Sodium Chloride 100 ml) 0 mg TOP ASDIRECTED [facility] Stop: 12/27/17 09:16 Last Admin: 12/27/17 10:03 Dose: 100 bag Fentanyl (Sublimaze) Confirm Administered Dose 100 mcg .ROUTE .STK-MED ONE Stop: 12/27/17 07:55 Gentamicin Sulfate (Gentamicin) Confirm Administered Dose 240 mg .ROUTE .STK- MED ONE Stop: 12/27/17 07:07 Last Admin: 12/27/17 10:10 Dose: 240 mg Cefazolin Sodium/Dextrose 2 gm (/ Premix) 50 mls @ 100 mls/hr IV ONETIME ONE Stop: 12/27/17 08:29 Last Admin: 12/27/17 09:01 Dose: 100 mls/hr Lactated Ringer's (Ringers, Lactated) 1,000 mls @ 100 mls/hr IV ASDIRECTED [facility] Last Admin: 12/27/17 08:47 Dose: 100 mls/hr Lactated Ringer's (Ringers, Lactated) Confirm Administered Dose 1,000 mls @ as directed .ROUTE .[email or web address]MED ONE Stop: 12/27/17 09:52 Cefazolin Sodium 2 gm/ Sodium (Chloride) 50 mls @ 100 mls/hr IV Q8H [facility] Stop: 12/28/17 09:29 Last Admin: 12/28/17 08:51 Dose: 100 mls/hr Lactated Ringer's (Ringers, Lactated) 1,000 mls @ 100 mls/hr IV ASDIRECTED [facility] Last Admin: 12/28/17 07:44 Dose: 100 mls/hr Midazolam HCl (Versed 1 Mg/Ml) Confirm Administered Dose 2 mg .ROUTE .STK-MED ONE Stop: 12/27/17 07:55 Oxycodone/Acetaminophen (Percocet 325-5 Mg) 2 tab PO Q4H PRN PRN Reason: Pain Povidone Iodine (Betadine 10% Soln) Confirm Administered Dose 1 ml .ROUTE .STK- MED ONE Stop: 12/27/17 07:08 Last Admin: 12/27/17 10:46 Dose: 5 ml Propofol (Diprivan 20 Ml) Confirm Administered Dose 200 mg .ROUTE .STK-MED ONE Stop: 12/27/17 07:55 Scopolamine (Transderm-Scop) 1.5 mg TOP Q72H [facility] Stop: 12/29/17 08:01 Last Admin: 12/27/17 07:50 Dose: 1.5 mg - Exam Quality Assessment: DVT Prophylaxis General: Alert, Oriented, Cooperative, No Acute Distress Lungs: Clear to Auscultation, Normal Respiratory Effort Cardiovascular: Regular Rate, Regular Rhythm, No Murmurs GI/Abdominal Exam: Soft, Non-Tender, No Organomegaly, No Distention - Problem List Review Problem List Initiated/Reviewed/Updated: Yes - My Orders Last 24 Hours: My Active Orders 12/28/17 11:17 Convert IV to Saline Lock [OM.PC] Routine 12/29/17 09:56 Bisacodyl [Dulcolax] 10 mg RECTAL DAILY PRN 12/30/17 05:00 INR,PT,PROTHROMBIN TIME [COAG] Timed - Plan Plan:: ASSESSMENT AND RECOMMENDATIONS STATUS POST RESURFACING OF PROSTHETIC JOINT-uncomplicated post operative course -Postoperative care per Hx of DVT, Cardiovascular disease -monitor blood pressue regularly during hospital stay -continue outpatient medications -Continue warfarin -INR in a.m.
[2017-12-29] MEDS: Sodium Chloride 0.9% 10 ML Syringe FLUSH SCH (11:22)
[2017-12-29] MEDS ORDERED: Warfarin 5 MG Tab PO SCH (13:00)
[2017-12-30] MEDS: Acetaminophen/oxyCODONE 325-5 MG Tab PO PRN (07:03)
[2017-12-30 07:44] VITALS: BP 132/56
[2017-12-30] MEDS: Sodium Chloride 0.9% 10 ML Syringe FLUSH SCH (08:28)
[2017-12-30] MEDS: Sertraline 50 MG Tab PO SCH (08:42)
[2017-12-30] MEDS: Oxybutynin 5 MG Tab PO SCH (08:42)
--- NOTE | 2017-12-30 09:35 | PCM.PN ---
- General Info Date of Service: 12/30/17 Subjective Update: Ms. Butler has been stable since yesterday and is ready for discharge to [facility] this morning. Vital signs have been good and she has remained afebrile, progressing well with physical therapy. - Review of Systems General: Reports: No Symptoms Pulmonary: Reports: No Symptoms Cardiovascular: Reports: No Symptoms Gastrointestinal: Reports: No Symptoms - Patient Data Vitals - Most Recent: Last Vital Signs Temp 98.1 F 12/30/17 07:00 Pulse 73 12/30/17 07:00 Resp 18 12/30/17 07:00 BP 132/56 L 12/30/17 07:00 Pulse Ox 89 L 12/30/17 07:00 Weight - Most Recent: 204 lb 3.215 oz I&O - Last 24 Hours: Intake & Output 12/29/17 12/30/17 12/30/17 22:59 06:59 14:59 Output Total 400 500 Balance -400 -500 Lab Results Last 24 Hours: Laboratory Results - last 24 hr 12/30/17 Range/Units 04:38 PT 11.8 (9.5-12.0) sec INR 1.08 (0.80-1.20) Med Orders - Current: Current Medications Acetaminophen (Tylenol) 650 mg PO Q4H PRN PRN Reason: Pain Al Hydroxide/Mg Hydroxide (Mag-Al Plus) 30 ml PO Q4H PRN PRN Reason: Constipation Bisacodyl (Dulcolax) 10 mg PO DAILY PRN PRN Reason: Constipation Last Admin: 12/29/17 10:00 Dose: 10 mg Bisacodyl (Dulcolax) 10 mg RECTAL DAILY PRN PRN Reason: Constipation Last Admin: 12/30/17 07:03 Dose: 10 mg Diphenhydramine HCl (Benadryl) 25 mg IVPUSH Q4H PRN PRN Reason: Itching Docusate Sodium (Colace) 100 mg PO BID PRN PRN Reason: Constipation Last Admin: 12/28/17 07:25 Dose: 100 mg Ketorolac Tromethamine (Toradol) 30 mg IVPUSH Q8H PRN PRN Reason: Pain Stop: 01/01/18 10:30 Last Admin: 12/28/17 14:33 Dose: 30 mg Lovastatin (Mevacor) 20 mg PO QPM JENNIFER Last Admin: 12/29/17 17:03 Dose: 20 mg Magnesium Hydroxide (Milk Of Magnesia) 30 ml PO BID PRN PRN Reason: Constipation Last Admin: 12/29/17 16:34 Dose: 30 ml Morphine Sulfate (Morphine) 2 mg IVPUSH Q2H PRN PRN Reason: Pain Naloxone HCl (Narcan) 0.1 mg IVPUSH ONETIME PRN PRN Reason: Oversedation Ondansetron HCl (Zofran) 8 mg IVPUSH Q4H PRN PRN Reason: Nausea/Vomiting Oxybutynin Chloride (Oxybutynin) 5 mg PO DAILY [facility] Last Admin: 12/30/17 08:42 Dose: 5 mg Oxycodone/Acetaminophen (Percocet 325-5 Mg) 1 - 2 tab PO Q4H PRN PRN Reason: Pain Last Admin: 12/30/17 07:03 Dose: 1 tab Senna (Senna) 8.6 mg PO BID PRN PRN Reason: Constipation Last Admin: 12/29/17 10:00 Dose: 8.6 mg Sertraline HCl (Zoloft) 50 mg PO DAILY [facility] Last Admin: 12/30/17 08:42 Dose: 50 mg Sodium Chloride (Saline Flush) 10 ml FLUSH DAILY [facility] Last Admin: 12/30/17 08:28 Dose: Not Given Tramadol HCl (Ultram) 100 mg PO Q6H PRN PRN Reason: Pain Last Admin: 12/27/17 20:41 Dose: 100 mg Warfarin Sodium (Coumadin) 2.5 mg PO SuTuThSa@1300 [facility] Last Admin: 12/28/17 14:32 Dose: 2.5 mg Warfarin Sodium (Coumadin) 5 mg PO MoWeFr@1300 [facility] Last Admin: 12/29/17 13:38 Dose: 5 mg Zolpidem Tartrate (Ambien) 5 mg PO BEDTIME PRN PRN Reason: Sleep Discontinued Medications Acetaminophen (Tylenol Extra Strength) 1,000 mg PO ONETIME ONE Stop: 12/27/17 08:01 Last Admin: 12/27/17 07:49 Dose: 1,000 mg Aspirin (Ecotrin) 325 mg PO DAILY [facility] Bupivacaine HCl/Dextrose (Marcaine 0.75% Spinal) Confirm Administered Dose 2 ml .ROUTE .STK-MED ONE Stop: 12/27/17 09:14 Ropivacaine 49.25 ml/Ketorolac Tromethamine 30 mg/Epinephrine HCl 0.5 mg/ Clonidine HCl 80 mcg/ Sodium Chloride 48.45 ml 0 ml INJECT ONETIME ONE Stop: 12/27/17 09:16 Last Admin: 12/27/17 10:02 Dose: 100 ml Tranexamic Acid 3,000 mg/ (Sodium Chloride 100 ml) 0 mg TOP ASDIRECTED [facility] Stop: 12/27/17 09:16 Last Admin: 12/27/17 10:03 Dose: 100 bag Fentanyl (Sublimaze) Confirm Administered Dose 100 mcg .ROUTE .STK-MED ONE Stop: 12/27/17 07:55 Gentamicin Sulfate (Gentamicin) Confirm Administered Dose 240 mg .ROUTE .STK- MED ONE Stop: 12/27/17 07:07 Last Admin: 12/27/17 10:10 Dose: 240 mg Cefazolin Sodium/Dextrose 2 gm (/ Premix) 50 mls @ 100 mls/hr IV ONETIME ONE Stop: 12/27/17 08:29 Last Admin: 12/27/17 09:01 Dose: 100 mls/hr Lactated Ringer's (Ringers, Lactated) 1,000 mls @ 100 mls/hr IV ASDIRECTED [facility] Last Admin: 12/27/17 08:47 Dose: 100 mls/hr Lactated Ringer's (Ringers, Lactated) Confirm Administered Dose 1,000 mls @ as directed .ROUTE .STK-MED ONE Stop: 12/27/17 09:52 Cefazolin Sodium 2 gm/ Sodium (Chloride) 50 mls @ 100 mls/hr IV Q8H [facility] Stop: 12/28/17 09:29 Last Admin: 12/28/17 08:51 Dose: 100 mls/hr Lactated Ringer's (Ringers, Lactated) 1,000 mls @ 100 mls/hr IV ASDIRECTED [facility] Last Admin: 12/28/17 07:44 Dose: 100 mls/hr Midazolam HCl (Versed 1 Mg/Ml) Confirm Administered Dose 2 mg .ROUTE .STK-MED ONE Stop: 12/27/17 07:55 Oxycodone/Acetaminophen (Percocet 325-5 Mg) 2 tab PO Q4H PRN PRN Reason: Pain Povidone Iodine (Betadine 10% Soln) Confirm Administered Dose 1 ml .ROUTE .STK- MED ONE Stop: 12/27/17 07:08 Last Admin: 12/27/17 10:46 Dose: 5 ml Propofol (Diprivan 20 Ml) Confirm Administered Dose 200 mg .ROUTE .STK-MED ONE Stop: 12/27/17 07:55 Scopolamine (Transderm-Scop) 1.5 mg TOP Q72H [facility] Stop: 12/29/17 08:01 Last Admin: 12/27/17 07:50 Dose: 1.5 mg - Exam General: Alert, Oriented, Cooperative, No Acute Distress Lungs: Clear to Auscultation, Normal Respiratory Effort Cardiovascular: Regular Rate, Regular Rhythm, No Murmurs GI/Abdominal Exam: Soft, Non-Tender, No Organomegaly, No Distention - Problem List Review Problem List Initiated/Reviewed/Updated: Yes - My Orders Last 24 Hours: My Active Orders 12/29/17 09:56 Bisacodyl [Dulcolax] 10 mg RECTAL DAILY PRN 12/30/17 09:32 Ready for Discharge [RC] PER UNIT ROUTINE - Plan Plan:: ASSESSMENT AND RECOMMENDATIONS STATUS POST RESURFACING OF PROSTHETIC JOINT-uncomplicated post operative course -Postoperative care per Hx of DVT, Cardiovascular disease -monitor blood pressue regularly during hospital stay -continue outpatient medications -Continue warfarin -follow-up INR at [facility] on January 02 Discharge to [facility] this morning, discharge summary previously completed by Dr. Rey Garner.
== END 2017-12-30 10:00 | DRG 489 ==
LOC: JP.SDS 12-27 07:30 → JP.SDSSCHI 12-27 07:30 → EDSTATUS 12-27 09:00 → JP.MS 12-27 10:29 → JP.SDS 12-27 11:30
PROVIDERS: ADMIT Orthopaedic Surgery; ATTEND Orthopaedic Surgery
PROC: 0SBC0ZZ Excision of Right Knee Joint, Open Approach (ICD-10-PCS; principal; 2017-12-27)
PROC: 0SPC09Z Removal of Liner from Right Knee Joint, Open Approach (ICD-10-PCS; 2017-12-27)
PROC: 0SUV09Z Supplement Right Knee Joint, Tibial Surface with Liner, Open Approach (ICD-10-PCS; 2017-12-27)
DX: T84.062A Wear of articular bearing surface of internal prosthetic right knee joint, initial encounter (principal); M25.561 Pain in right knee; M17.11 Unilateral primary osteoarthritis, right knee; I10 Essential (primary) hypertension; Z86.718 Personal history of other venous thrombosis and embolism; M54.9 Dorsalgia, unspecified; G89.29 Other chronic pain; Z79.01 Long term (current) use of anticoagulants; Z88.5 Allergy status to narcotic agent; Z96.651 Presence of right artificial knee joint; H54.7 Unspecified visual loss
CPT/HCPCS: 36415; 73560-26-RT; 73560-RT; 80053; 85025; 85610; 86850; 86900; 86901; 97110-GP; 97116-GP; 97161-GP; 97530-GP; 97535-GP; A9270-GY; J0171; J0690; J0735; J1580; J1885; J2250; J2704; J2795; J3010; J7050; J7120

== ENCOUNTER → 2018-10-24 | Outpatient (CLI) | payer MEDICARE, OTHER ==
--- NOTE | 2018-10-25 09:56 | CRLMY ---
INDICATION: Bilateral Screening Mammogram, Asymptomatic Female age 78 been obtained using full-field digital technique. These mammographic images were interpreted with the benefit of computer-aided detection. COMPARISON FILM: 06/28/17, 06/27/16, 06/24/15(L), 06/22/15, 06/20/14. FINDINGS: The breast tissue is almost entirely fat. There are no masses or calcifications that are suspicious for malignancy. IMPRESSION: There is no radiographic evidence for malignancy. ASSESSMENT: BI-RADS Category 2: Benign RECOMMENDATION: No Follow Up Recommendation. A lay language report of this examination will be provided to the patient. Breast Tomosynthesis was used in this interpretation. [email or web address] Dictated by: Casey Park MD @ 10/25/2018 09:54:01 (Electronically Signed)
== END ==
LOC: JP.MAM 09:34
PROVIDERS: ATTEND Family Medicine
DX: Z12.31 Encounter for screening mammogram for malignant neoplasm of breast (principal)
CPT/HCPCS: 77063; 77067

== ENCOUNTER 2018-12-04 05:26 | Day surgery (SDC) | payer MEDICARE, OTHER ==
[2018-12-04] MEDS ORDERED: Dextrose 5%-Lactated Ringers 1,000 ML IV SCH (06:15)
[2018-12-04] MEDS ORDERED: fentaNYL 100 MCG/2 ML SDV ONE (06:44)
[2018-12-04] MEDS ORDERED: Propofol 200 MG/20 ML SDV ONE (06:44)
[2018-12-04] MEDS ORDERED: Meropenem 500 MG in Sodium Chloride 0.9% 50 ML IV ONE (07:15)
[2018-12-04 08:56] VITALS: BP 144/51
--- NOTE | 2018-12-07 08:46 | OR ---
DATE OF PROCEDURE: 12/04/2018 SURGEON: Dez Garner MD PREOPERATIVE DIAGNOSIS: Indication for screening colonoscopy. POSTOPERATIVE DIAGNOSES: 1. A single small polyp in transverse colon (obliterated in the course of suction through colonoscope). 2. Left colonic diverticulosis. OPERATIVE PROCEDURE: Flexible colonoscopy with polypectomy by biopsy forceps. ANESTHESIA: IV sedation. INDICATION FOR PROCEDURE: This is an 78-year-old referred for a followup colonoscopy. The plan is to proceed with a screening colonoscopy with biopsies and/or polypectomy as indicated. Potential risks including bleeding and perforation were discussed, and the patient wishes to proceed. DETAILS OF PROCEDURE: The patient was taken to the operating room and placed in a left lateral decubitus position. IV sedation was administered, after which the initial digital rectal exam was performed and was unremarkable. The scope was then passed into the rectum with retroflexion revealing uncomplicated hemorrhoidal columns. Scope was eventually passed to the level of the cecum. The prep was fairly good. The patient was noted to have some left colonic diverticulosis, but otherwise had a single small polyp perhaps in the range of 2-3 mm in the transverse colon. This was grasped with biopsy forceps and then pulled up into the colonoscope. It was then attempted to be retrieved. This appeared to have broken off out of the biopsy forceps as it was being pulled from its edge upward and as the suction through the colonoscope appeared to have been obliterated, due to the course of suction, and no tissue has been captured within the trap. This was a very small polyp, and the chances of this being malignant were negligible. At that point, the scope was withdrawn and no additional abnormalities noted, apart from the diverticulosis, and the procedure then concluded. At this point, at 78 years old, recommendation with regard to additional followup colonoscopy would be per the discussion of her primary physician, based on symptoms and overall health. Dez Garner MD /[id number]
== END 2018-12-04 09:25 | disposition home or self-care (01) ==
LOC: JP.SDS 05:26
PROVIDERS: ATTEND Surgery
DX: Z12.11 Encounter for screening for malignant neoplasm of colon (principal); K63.5 Polyp of colon; K57.30 Diverticulosis of large intestine without perforation or abscess without bleeding; K64.9 Unspecified hemorrhoids; E78.5 Hyperlipidemia, unspecified; F32.9 Major depressive disorder, single episode, unspecified; Z88.5 Allergy status to narcotic agent; Z86.010 Personal history of colon polyps
CPT/HCPCS: 36415; 45380; 85610; J2185; J2704; J3010; J7042; J7050